=== PATIENT | male | born 1995 | race Caucasian/White ===

== ENCOUNTER 2017-01-24 11:03 | Emergency (ER) | payer BC, MEDICAID ==
[2017-01-24] MEDS ORDERED: Compazine 10 MG/2 ML IV ONE (11:36)
[2017-01-24] MEDS ORDERED: Hydromorphone 1 mg/ml Ampule IV ONE (11:38)
[2017-01-24] MEDS ORDERED: Sodium Chloride 0.9% 1000 ML 1,000 ML IV SCH (11:45)
--- NOTE | 2017-01-24 11:45 | ERPHSYRPT ---
- History of Present Illness Time Seen by Provider: 01/24/17 11:30 Source: patient Exam Limitations: clinical condition Patient Subjective Stated Complaint: pt states he began having a headache last pm while on the computer. pt states he has these headaches but not often. Triage Nursing Assessment: pt pink, warm, dry. pt ambulated into ER without difficulty. pupils perrl. Physician History: PATIENT COMPLAINS OF GENERALIZED HEADACHE SINCE LAST NIGHT CONSTANT, PAIN SCALE 8/10 ASSOCIATED WITH PHOTOPHOBIA, DENIES NASAL CONGESTION, FACIAL PRESSURE, BLURRED VISION, FEVER OR NECK STIFFNESS. Timing/Duration: yesterday Quality: throbbing Head Pain Location: global Severity of Pain-Max: moderate Severity of Pain-Current: moderate Recent Head Trauma: occasional headaches Modifying Factors: Improves With: exposure to light Associated Symptoms: sensitive to light Previous symptoms: no prior history Allergies/Adverse Reactions: No Known Drug Allergies Allergy (Verified 01/24/17 11:16) Hx Tetanus, Diphtheria Vaccination/Date Given: Yes (up to date) Hx Influenza Vaccination/Date Given: No Hx Pneumococcal Vaccination/Date Given: No Immunizations Up to Date: Yes - Review of Systems Constitutional: No Fever, No Chills Eyes: No Symptoms Ears, Nose, & Throat: No Symptoms Respiratory: No Symptoms, No Cough, No Dyspnea Cardiac: No Symptoms, No Chest Pain, No Edema, No Syncope Abdominal/Gastrointestinal: No Symptoms, No Abdominal Pain, No Nausea, No Vomiting, No Diarrhea Genitourinary Symptoms: No Symptoms, No Dysuria Musculoskeletal: No Symptoms, No Back Pain, No Neck Pain Skin: No Symptoms, No Rash Neurological: Headache, No Dizziness, No Focal Weakness, No Sensory Changes Psychological: No Symptoms Endocrine: No Symptoms All Other Systems: Reviewed and Negative - Past Medical History Pertinent Past Medical History: Yes ENT History: Other Respiratory History: Asthma Other Medical History: tubes in ears - Past Surgical History Past Surgical History: Yes Other Surgical History: tubes in ears - Social History Smoking Status: Never smoker Exposure to second hand smoke: No Drug Use: none Patient Lives Alone: No - Nursing Vital Signs Nursing Vital Signs: Initial Vital Signs Temperature 99.9 F Temperature Source Oral Pulse Rate 98 Respiratory Rate 18 Blood Pressure [] 125/69 Pain Intensity 0 - Physical Exam General Appearance: no apparent distress Eye Exam: PERRL/EOMI, other (NO PERCUSSION TENDERNESS OVER SINUSES) Ears, Nose, Throat Exam: normal ENT inspection, moist mucous membranes Neck Exam: normal inspection, supple, full range of motion, other (NO POST CERVICAL SPINAL TENDERNESS), No meningismus Respiratory Exam: normal breath sounds, lungs clear Cardiovascular Exam: regular rate/rhythm, normal heart sounds Gastrointestinal/Abdominal Exam: soft, normal bowel sounds, No tenderness, No distention Back Exam: normal inspection, normal range of motion Mental Status Exam: alert, oriented x 3, 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 Exam: normal speech, PERRL, No facial droop Coordination/Gait Exam: normal cerebellar function Motor/Sensory Exam: no motor deficit, no sensory deficit Skin Exam: normal color, warm, dry, No rash SpO2: 97 Oxygen Delivery: Room Air - CT Exams Head CT Interpretation: Discussed w/radiologist (NORMAL CT HEAD ) Ordered Tests: Active Orders 24 hr Category Date Time Status HEAD WITHOUT CONTRAST [CT] Stat Exams 01/24/17 13:14 Completed BMP Stat Lab 01/24/17 12:00 Completed CBC W DIFF Stat Lab 01/24/17 12:00 Completed Medication Summary Generic Name Dose Route Start Last Admin Trade Name Freq PRN Reason Stop Dose Admin Sodium Chloride 1,000 mls @ 200 mls/hr 01/24/17 11:45 01/24/17 12:06 Sodium Chloride 0.9% 1000 Ml IV 02/23/17 11:44 200 mls/hr .Q5H STEFANIE Administration Discontinued Medications Generic Name Dose Route Start Last Admin Trade Name Freq PRN Reason Stop Dose Admin Fentanyl Citrate 100 mcg 01/24/17 14:12 01/24/17 14:16 Sublimaze 100 Mcg/2 Ml IV 01/24/17 14:13 100 mcg STAT ONE Administration Fentanyl Citrate Confirm 01/24/17 14:14 Sublimaze 100 Mcg/2 Ml Administered 01/24/17 14:15 Dose 100 mcg .ROUTE .STK-MED ONE Hydromorphone HCl 1 mg 01/24/17 11:38 01/24/17 12:05 Hydromorphone 1 Mg/Ml Ampule IV 01/24/17 11:39 1 mg STAT ONE Administration Hydromorphone HCl Confirm 01/24/17 12:02 Hydromorphone 1 Mg/Ml Ampule Administered 01/24/17 12:03 Dose 1 mg .ROUTE .STK-MED ONE Ketorolac Tromethamine 30 mg 01/24/17 13:47 01/24/17 13:53 Toradol 30 Mg Injection IV 01/24/17 13:48 30 mg STAT ONE Administration Ketorolac Tromethamine Confirm 01/24/17 13:50 Toradol 30 Mg Injection Administered 01/24/17 13:51 Dose 30 mg .ROUTE .STK-MED ONE Ondansetron HCl 4 mg 01/24/17 13:29 01/24/17 13:46 Zofran 4 Mg/2 Ml Vial IV 01/24/17 13:30 4 mg STAT ONE Administration Ondansetron HCl Confirm 01/24/17 13:34 Zofran 4 Mg/2 Ml Vial Administered 01/24/17 13:35 Dose 4 mg .ROUTE .STK-MED ONE Prochlorperazine Edisylate 10 mg 01/24/17 11:36 01/24/17 12:05 Compazine 10 Mg/2 Ml IV 01/24/17 11:37 10 mg STAT ONE Administration Prochlorperazine Edisylate Confirm 01/24/17 12:02 Compazine 10 Mg/2 Ml Administered 01/24/17 12:03 Dose 10 mg .ROUTE .STK-MED ONE Lab/Rad Data: Laboratory Result Diagrams 01/24/17 12:00 01/24/17 12:00 Laboratory Results 01/24/17 01/24/17 Range/Units 12:00 12:00 WBC 6.8 (4.0-10.5) K/mm3 RBC 4.63 (4.1-5.6) M/mm3 Hgb 14.3 (12.5-18.0) gm/dl Hct 42.6 (42-50) % MCV 92.0 (78-100) fl MCH 30.9 (26-32) pg MCHC 33.6 (32-36) g/dl RDW 13.3 (11.5-14.0) % Plt Count 304 (150-450) K/mm3 MPV 9.5 (6-9.5) fl Gran % 73.4 H (36.0-66.0) % Lymphocytes % 16.7 L (24.0-44.0) % Monocytes % 9.0 (0.0-12.0) % Eosinophils % 0.6 (0.00-5.0) % Basophils % 0.3 (0.0-0.4) % Basophils # 0.02 (0-0.4) Sodium 139 (136-145) mEq/L Potassium 3.9 (3.5-5.1) mEq/L Chloride 104 (98-107) mEq/L Carbon Dioxide 29.1 (21-32) mEq/L Anion Gap 9.3 (5-15) MEQ/L BUN 11 (9-20) mg/dL Creatinine 1.13 (0.55-1.30) mg/dl Estimated GFR > 60 ML/MIN Glucose 107 (70-110) MG/DL Calcium 9.2 (8.5-10.1) mg/dL - Progress Progress Note: 01/24/17 11:44 PATIENT ADMINISTERED IV NORMAL SALINE 200ML/HR, COMPAZINE 10MG, DILAUDID 1MG IV , ZOFRAN 4MG, TORADOD 30MG IV 01/24/17 13:46 Counseled pt/family regarding: diagnosis, need for follow-up, rad results - Departure Time of Disposition: 14:40 Departure Disposition: Home Clinical Impression: ACUTE CEPHALGIA Condition: Stable Critical Care Time: No Referrals: TAY BATRES [Primary Care Provider] - Instructions: Headache Additional Instructions: FOLLOWUP WITH YOUR FAMILY PHYSICIAN FOR EVALUATION. FIORICET WITH CODEINE EVERY 4-6 HOURS NEEDED FOR PAIN. ZOFRAN 4MG EVERY 4 HOURS FOR NAUSEA. Prescriptions: Butalbit/Acetamin/Caff/Codeine [Fioricet-Cod [id number] Cap] 1 each PO Q4HPRN PRN #12 capsule PRN Reason: Pain Ondansetron [Zofran Odt] 4 mg PO Q4H PRN PRN #6 tab.rapdis PRN Reason: Nausea
[2017-01-24] MEDS ORDERED: Compazine 10 MG/2 ML ONE (12:02)
[2017-01-24] MEDS ORDERED: Hydromorphone 1 mg/ml Ampule ONE (12:02)
[2017-01-24] MEDS ORDERED: Sodium Chloride 0.9% 1000 ML 1,000 ML ONE (12:03)
[2017-01-24 12:22] LABS: BASOPHIL % 0.3 % (0.0-0.4); Eosinophil % 0.6 % (0.00-5.0); Granulocytes % 73.4 % (36.0-66.0); Lymphocytes % 16.7 % (24.0-44.0); Mean Corpuscular Hemoglobin 30.9 pg (26-32); Mean Platelet Volume 9.5 fl (6-9.5); Platelet Count 304 K/mm3 (150-450); Red Blood Count 4.63 M/mm3 (4.1-5.6); Red Cell Distribution Width 13.3 % (11.5-14.0); White Blood Count 6.8 K/mm3 (4.0-10.5)
[2017-01-24 12:35] LABS: ANION GAP 9.3 MEQ/L (5-15); BLOOD UREA NITROGEN 11 mg/dL (9-20); CHLORIDE 104 mEq/L (98-107); Carbon Dioxide 29.1 mEq/L (21-32); Glucose 107 MG/DL (70-110); Potassium 3.9 mEq/L (3.5-5.1); SODIUM 139 mEq/L (136-145)
[2017-01-24] MEDS ORDERED: Zofran 4 MG/2 ML VIAL IV ONE (13:29)
[2017-01-24] MEDS ORDERED: Zofran 4 MG/2 ML VIAL ONE (13:34)
--- NOTE | 2017-01-24 13:44 | XRAY ---
Indication: Right headache. Multiple contiguous axial images obtained through the head without contrast. Comparison: None Normal appearing brain parenchyma, ventricles, and bony calvarium. Visualized paranasal sinuses and mastoid air cells are clear. Impression: Normal CT head without contrast exam. CT DI 69.38
[2017-01-24] MEDS ORDERED: TORAdol 30 mg Injection IV ONE (13:47)
[2017-01-24] MEDS ORDERED: TORAdol 30 mg Injection ONE (13:50)
[2017-01-24 14:09] VITALS: O2SAT 97
[2017-01-24] MEDS ORDERED: SUBLIMAZE 100 MCG/2 ML IV ONE (14:12)
[2017-01-24] MEDS ORDERED: SUBLIMAZE 100 MCG/2 ML ONE (14:14)
[2017-01-24 14:48] VITALS: BP 125/69; PULSE 98
== END 2017-01-24 14:46 | disposition home or self-care (01) ==
LOC: ED 11:03
DX: R51 Headache (principal)
CPT/HCPCS: 36415; 70450; 80048; 85025; 96360; 96361; 96374; 96375; 99284; J1170; J1885; J2405; J3010

== ENCOUNTER 2017-07-08 17:31 | Emergency (ER) | payer BC ==
[2017-07-08] MEDS ORDERED: BABY ASPIRIN 81 MG CHEW PO ONE (17:51)
--- NOTE | 2017-07-08 17:57 | ERPHSYRPT ---
<HARDIKBRANDON CHATTERJEELEY - Last Filed: 07/08/17 19:05> - History of Present Illness Time Seen by Provider: 07/08/17 17:51 Historian: patient Exam Limitations: no limitations Patient Subjective Stated Complaint: sharp chest pain since 1500 today. 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 also having occasional pain to right chest. is working several 12 hour night shifts in a row and has been very tired. Triage Nursing Assessment: ambulated to room per self. skin w/d, color normal, resp easy. denies any other symptoms at this time. no edema noted, breath and heart sounds good. Physician History: 21-year-old white male with history of asthma arrives with complaint of pain in his anterior chest both left and right sharp worse with turning his head to the left symptoms since 3:00 states the pain comes and goes. Patient has no nausea no vomiting no shortness of breath no diaphoresis. Past medical history includes asthma. Past surgical history includes myringotomy tubes. Social history occasional alcohol. Timing/Duration: today (3 PM) Activities at Onset: rest Quality: sharpness Location: other (bilateral upper chest left worse than right) Chest Pain Radiation: arm (right arm) Severity of Pain-Max: moderate Severity of Pain-Current: mild Modifying Factors: Improves With: other (turning head to the left makes pain worse) Associated Symptoms: No nausea, No vomiting, No palpitations, No heartburn, No abdominal pain, No shortness of breath, No cough, No hurts to breathe, No diaphoresis, No chills, No fever, No fatigue, No weakness, No swelling/lump in chest, No syncope, No rash, No headache, No dizziness, No edema, No back pain Prior Chest Pain/Cardiac Workup: no prior chest pain Aspirin Treatment Today: 81 mg x 4, provided by ED Allergies/Adverse Reactions: No Known Drug Allergies Allergy (Verified 07/08/17 17:32) Hx Tetanus, Diphtheria Vaccination/Date Given: Yes (up to date) Hx Influenza Vaccination/Date Given: No Hx Pneumococcal Vaccination/Date Given: No - Review of Systems Constitutional: No Fever, No Chills Eyes: No Symptoms Ears, Nose, & Throat: No Symptoms Respiratory: No Cough, No Dyspnea Cardiac: Chest Pain, No Edema, No Syncope Abdominal/Gastrointestinal: No Abdominal Pain, No Nausea, No Vomiting, No Diarrhea Genitourinary Symptoms: No Dysuria Musculoskeletal: No Back Pain, No Neck Pain Skin: No Rash Neurological: No Dizziness, No Focal Weakness, No Sensory Changes Psychological: No Symptoms Endocrine: No Symptoms All Other Systems: Reviewed and Negative - Past Medical History Pertinent Past Medical History: Yes ENT History: Other Respiratory History: Asthma Other Medical History: tubes in ears - Past Surgical History Past Surgical History: Yes Other Surgical History: tubes in ears - Social History Smoking Status: Never smoker Exposure to second hand smoke: No Drug Use: none Patient Lives Alone: No - Nursing Vital Signs Nursing Vital Signs: Initial Vital Signs Temperature 97.8 F 07/08/17 17:33 Pulse Rate 90 07/08/17 17:33 Respiratory Rate 18 07/08/17 17:33 Blood Pressure 130/84 07/08/17 17:33 O2 Sat by Pulse Oximetry 97 07/08/17 17:33 Pain Scale Pain Intensity 3 - Physical Exam General Appearance: mild distress, obese, other (well-developed obese white male in no acute distress) Eye Exam: PERRL/EOMI, eyes nml inspection Ears, Nose, Throat Exam: normal ENT inspection, moist mucous membranes Neck Exam: normal inspection, non-tender, supple, full range of motion Respiratory Exam: normal breath sounds, lungs clear, No respiratory distress Cardiovascular Exam: regular rate/rhythm, normal heart sounds Gastrointestinal/Abdomen Exam: soft, No tenderness, No mass Back Exam: normal inspection, No CVA tenderness, No vertebral tenderness Extremity Exam: normal inspection, normal range of motion Neurologic Exam: alert, oriented x 3, cooperative, normal mood/affect, sensation nml, No motor deficits Skin Exam: normal color, warm, dry SpO2 Interpretation: normal (97%) SpO2: 97 Oxygen Delivery: Room Air - Course Nursing assessment & vital signs reviewed: Yes EKG Interpreted by Me: RATE (86 bpm), Sinus Rhythm, Other (EKG, normal sinus rhythm 86 bpm axisSI/QIII pattern, no acute ST or T wave changes noted, essentially normal EKG) Ordered Tests: Active Orders 24 hr Category Date Time Status Disease Education Specialist STAT Care 07/08/17 17:52 Active EKG-ER Only STAT Care 07/08/17 17:51 Active IV Insertion STAT Care 07/08/17 17:51 Active Pulse Oximetry (ED) STAT Care 07/08/17 17:51 Active CHEST WITH CONTRAST [CT] Stat Exams 07/08/17 18:34 Taken CBC W DIFF Stat Lab 07/08/17 17:45 Completed CMP Stat Lab 07/08/17 17:45 Completed D-DIMER QUANTITATION Stat Lab 07/08/17 17:45 Completed TROPONIN Q3H Lab 07/08/17 17:45 Completed TROPONIN Q3H Lab 07/08/17 21:00 Ordered TROPONIN Q3H Lab 07/09/17 00:00 Ordered TROPONIN Q3H Lab 07/09/17 03:00 Ordered TROPONIN Q3H Lab 07/09/17 06:00 Ordered Medication Summary Discontinued Medications Generic Name Dose Route Start Last Admin Trade Name Freq PRN Reason Stop Dose Admin Aspirin 324 mg 07/08/17 17:51 07/08/17 18:26 Baby Aspirin 81 Mg Chew PO 07/08/17 17:52 324 mg STAT ONE Administration Aspirin Confirm 07/08/17 18:14 Baby Aspirin 81 Mg Chew Administered 07/08/17 18:15 Dose 324 mg .ROUTE .STK-MED ONE Hydroxyzine HCl 50 mg 07/08/17 19:47 07/08/17 19:50 Atarax 25 Mg PO 07/08/17 19:48 50 mg STAT ONE Administration Hydroxyzine HCl Confirm 07/08/17 19:50 Atarax 25 Mg Administered 07/08/17 19:51 Dose 50 mg .ROUTE .STK-MED ONE Ibuprofen 600 mg 07/08/17 19:47 07/08/17 19:50 Motrin 600 Mg PO 07/08/17 19:48 600 mg STAT ONE Administration Ibuprofen Confirm 07/08/17 19:49 Motrin 600 Mg Administered 07/08/17 19:50 Dose 600 mg .ROUTE .STK-MED ONE Lab/Rad Data: Laboratory Result Diagrams 07/08/17 17:45 07/08/17 17:45 Laboratory Results 07/08/17 07/08/17 07/08/17 Range/Units 17:45 17:45 17:45 WBC (4.0-10.5) K/mm3 RBC (4.1-5.6) M/mm3 Hgb (12.5-18.0) gm/dl Hct (42-50) % MCV (78-100) fl MCH (26-32) pg MCHC (32-36) g/dl RDW (11.5-14.0) % Plt Count (150-450) K/mm3 MPV (6-9.5) fl Gran % (36.0-66.0) % Lymphocytes % (24.0-44.0) % Monocytes % (0.0-12.0) % Eosinophils % (0.00-5.0) % Basophils % (0.0-0.4) % Basophils # (0-0.4) D-Dimer 507.67 H* (0-500) ng/mL Sodium 142 (136-145) mEq/L Potassium 4.0 (3.5-5.1) mEq/L Chloride 107 (98-107) mEq/L Carbon Dioxide 28.5 (21-32) mEq/L Anion Gap 10.1 (5-15) MEQ/L BUN 16 (9-20) mg/dL Creatinine 1.09 (0.55-1.30) mg/dl Estimated GFR > 60 ML/MIN Glucose 103 (70-110) MG/DL Calcium 9.0 (8.5-10.1) mg/dL Total Bilirubin 0.80 (0.2-1.0) mg/dL AST 25 (15-37) U/L ALT 47 (12-78) U/L Alkaline Phosphatase 89 (46-116) U/L Troponin I < 0.017 (0.000-0.056) ng/ml Serum Total Protein 7.7 (6.4-8.2) gm/dL Albumin 3.7 (3.4-5.0) g/dL 07/08/17 Range/Units 17:45 WBC 7.4 (4.0-10.5) K/mm3 RBC 4.46 (4.1-5.6) M/mm3 Hgb 13.5 (12.5-18.0) gm/dl Hct 41.2 L (42-50) % MCV 92.4 (78-100) fl MCH 30.3 (26-32) pg MCHC 32.8 (32-36) g/dl RDW 12.5 (11.5-14.0) % Plt Count 349 (150-450) K/mm3 MPV 9.5 (6-9.5) fl Gran % 55.3 (36.0-66.0) % Lymphocytes % 32.1 (24.0-44.0) % Monocytes % 7.9 (0.0-12.0) % Eosinophils % 4.3 (0.00-5.0) % Basophils % 0.4 (0.0-0.4) % Basophils # 0.03 (0-0.4) D-Dimer (0-500) ng/mL Sodium (136-145) mEq/L Potassium (3.5-5.1) mEq/L Chloride (98-107) mEq/L Carbon Dioxide (21-32) mEq/L Anion Gap (5-15) MEQ/L BUN (9-20) mg/dL Creatinine (0.55-1.30) mg/dl Estimated GFR ML/MIN Glucose (70-110) MG/DL Calcium (8.5-10.1) mg/dL Total Bilirubin (0.2-1.0) mg/dL AST (15-37) U/L ALT (12-78) U/L Alkaline Phosphatase (46-116) U/L Troponin I (0.000-0.056) ng/ml Serum Total Protein (6.4-8.2) gm/dL Albumin (3.4-5.0) g/dL - Progress Progress: improved Air Movement: fair Progress Note: 07/08/17 18:32 Patient is a 21-year-old white male arrives with complaint of pain in his anterior chest since this afternoon sharp bilateral worse with movement worse with leaning forward and turning his head to the side. EKG is normal troponin within normal limits unfortunately however d-dimer is elevated at 507. Will go ahead and order a CTA chest to rule out PE 07/08/17 19:03 Case has been discussed with Dr. Vinay Mclean will assume care of this patient secondary to shift change. - Departure Clinical Impression: Chest pain Condition: Fair Referrals: TAY BATRES [Primary Care Provider] - Instructions: Chest Pain Additional Instructions: Rest tonite, no driving or operating machinery. Off work tonite. Take ibuprofen. Try warm compresses and cold packs. Return for problems or concerns. Follow up with Dr Batres next week. Prescriptions: Ibuprofen 600 mg PO Q6H PRN PRN #20 tablet PRN Reason: Pain <CHIOMA MCLEAN - Last Filed: 07/08/17 20:31> - CT Exams chest CTA CT Interpretation: Tele-radiologist Report (no central PE, suboptimal bolus, no pneumonia, no TAD) - Progress Progress Note: 07/08/17 20:27 Pt was initially seen per Dr Escamilla. He has fatigue, working a lot, chest pain. EKG nonspecific. No fam hx of early CAD, no drug use, no hx of thromboembolic events. He is overweight. 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 No cough or short of breath. PE: Chest clear. Cor reg without murmur or rub. Abd soft. Legs without edema. Labs and CTA reassuring. Pain worse with moving arms and chest. Will take off work tonite, rest, motrin, follow up Dr Batres. Will release with instr. Counseled pt/family regarding: lab results, diagnosis, need for follow-up, rad results - Departure Time of Disposition: 20:30 Departure Disposition: Home Critical Care Time: No
[2017-07-08 17:59] LABS: BASOPHIL % 0.4 % (0.0-0.4); Eosinophil % 4.3 % (0.00-5.0); Granulocytes % 55.3 % (36.0-66.0); Lymphocytes % 32.1 % (24.0-44.0); Mean Cell Volume 92.4 fl (78-100); Mean Corpuscular Hemoglobin 30.3 pg (26-32); Mean Platelet Volume 9.5 fl (6-9.5); Monocytes % 7.9 % (0.0-12.0); Platelet Count 349 K/mm3 (150-450); Red Blood Count 4.46 M/mm3 (4.1-5.6); Red Cell Distribution Width 12.5 % (11.5-14.0); White Blood Count 7.4 K/mm3 (4.0-10.5)
[2017-07-08] MEDS ORDERED: BABY ASPIRIN 81 MG CHEW ONE (18:14)
[2017-07-08 18:15] LABS: ALBUMIN 3.7 g/dL (3.4-5.0); ALKALINE PHOSPHATASE 89 U/L (46-116); ANION GAP 10.1 MEQ/L (5-15); BLOOD UREA NITROGEN 16 mg/dL (9-20); CHLORIDE 107 mEq/L (98-107); Carbon Dioxide 28.5 mEq/L (21-32); Glucose 103 MG/DL (70-110); SGOT/AST 25 U/L (15-37); SGPT/ALT 47 U/L (12-78); SODIUM 142 mEq/L (136-145); Total Protein 7.7 gm/dL (6.4-8.2)
[2017-07-08] MEDS ORDERED: ATARAX 25 MG PO ONE (19:47)
[2017-07-08] MEDS ORDERED: MOTRIN 600 MG PO ONE (19:47)
[2017-07-08] MEDS ORDERED: MOTRIN 600 MG ONE (19:49)
[2017-07-08] MEDS ORDERED: ATARAX 25 MG ONE (19:50)
[2017-07-08 21:45] VITALS: BP 110/61; PULSE 88; O2SAT 97
--- NOTE | 2017-07-08 23:04 | XRAY ---
Indication: Chest pain radiating down right arm. Elevated d-dimer. History of asthma. Multiple contiguous axial images obtained through the chest using 80 cc Isovue 370 contrast and PE protocol. Comparison: None There is poor opacification of the pulmonary arteries markedly limiting evaluation for pulmonary embolus. No large central pulmonary embolus. Heart is not enlarged. Aorta is normal in course and caliber. Hiatal hilar and tiny mediastinal calcified nodes. No pathologic mediastinal/hilar lymphadenopathy. Examination of the lung parenchyma demonstrates minimal bilateral dependent atelectasis and scattered calcified granulomas. No suspicious pulmonary mass, infiltrate, or effusion. Bony thorax intact. Limited upper abdomen demonstrates fatty liver and 14.6 cm splenomegaly. Impression: 1. CT PE study limited due to suboptimal contrast opacification. No large central PE. 2. No acute cardiopulmonary abnormalities. 3. Evidence for old granulomatous disease. 4. Incidental fatty liver and splenomegaly. Comment: Preliminary interpretation was made by [facility]. No critical discrepancy. CTDI 28.14
== END 2017-07-08 21:29 | disposition home or self-care (01) ==
LOC: ED 17:31
DX: R07.9 Chest pain, unspecified (principal); J45.909 Unspecified asthma, uncomplicated
CPT/HCPCS: 36000; 36415; 71260; 80053; 84484; 85025; 85379; 93005; 93041; 99284; A9270-GY

== ENCOUNTER 2021-01-24 09:44 | Emergency (ER) | payer SELFPAY ==
[2021-01-24 09:55] VITALS: BP 153/91; PULSE 84; O2SAT 98
--- NOTE | 2021-01-24 10:02 | ERPHSYRPT ---
- History of Present Illness Time Seen by Provider: 01/24/21 09:53 Source: patient Exam Limitations: no limitations Patient Subjective Stated Complaint: Pt states that he has had a headache off and on since Tuesday, light sensitivity, pt has had diarrhea too Triage Nursing Assessment: Pt brought to the ER by his mother, hypertensive, rates head pain as 4/10, last vomited , skin n/w/d, talkative, doesn't appear to be in any distress Physician History: 25 years old male with history of migraines poorly controlled, irritable bowel syndrome presented in the ER with 6 days history of gastroenteritis symptoms and off-and-on headache. Patient reports he has a total 2 episodes of nonprojectile, nonbilious vomiting last one was 2 days ago and has 3-4 episodes of loose stool with the last episode yesterday. He did tolerate oral very well. He has been drinking 2-3 bottles of water every time he has a vomiting or diarrhea. He does have a dull aching headache all over which was worse 2 days ago and is improved now currently rates 3-4/10 intensity at max without any focal numbness tingling or weakness. Headache is similar to previous episodes and does not think this was the worst headache of his life. Denies any visual symptoms. No difficulty speech. Did have mild light sensitivity earlier. Denies any sick contact. Patient reports he occasionally does get symptoms of gastroenteritis with IBS depending on what he eats. Mom brought him here because she thought he might need IV fluids. Timing/Duration: day(s) (6), intermittent, resolved prior to arrival, improved Severity: mild, moderate Associated Symptoms: nausea, vomiting, headaches, malaise, weakness, No abdominal pain, No cough, No chest pain, No fever Allergies/Adverse Reactions: red dye Allergy (Verified 01/24/21 09:57) Home Medications: No Reportable Medications [No Reported Medications] 01/24/21 [History] Hx Tetanus, Diphtheria Vaccination/Date Given: Yes (up to date) Hx Influenza Vaccination/Date Given: No Hx Pneumococcal Vaccination/Date Given: No Travel Risk - International Travel Have you traveled outside of the country in past 3 weeks: No - Coronavirus Screening Are you exhibiting any of the following symptoms?: No Close contact with a COVID-19 positive Pt in past 14-21 Days: No - Vaccine Status Have you recieved a Covid-19 vaccination: No - Review of Systems Respiratory: No Symptoms Cardiac: No Symptoms Abdominal/Gastrointestinal: Nausea, Vomiting, Diarrhea Genitourinary Symptoms: No Symptoms Musculoskeletal: Myalgias Skin: No Symptoms Neurological: No Symptoms Psychological: No Symptoms Endocrine: No Symptoms Hematologic/Lymphatic: No Symptoms Immunological/Allergic: No Symptoms - Past Medical History Pertinent Past Medical History: Yes ENT History: Other Respiratory History: Asthma Other Medical History: tubes in ears - Past Surgical History Past Surgical History: Yes Other Surgical History: tubes in ears - Social History Smoking Status: Never smoker Exposure to second hand smoke: No Drug Use: none Patient Lives Alone: No - Nursing Vital Signs Nursing Vital Signs: Initial Vital Signs Temperature 97.8 F 01/24/21 09:49 Pulse Rate 84 01/24/21 09:49 Blood Pressure 153/91 01/24/21 09:49 O2 Sat by Pulse Oximetry 98 01/24/21 09:49 Pain Scale Pain Intensity 4 - Physical Exam General Appearance: no apparent distress, alert Eye Exam: PERRL/EOMI, eyes nml inspection Ears, Nose, Throat Exam: normal ENT inspection, TMs normal, pharynx normal Neck Exam: normal inspection, non-tender, supple, full range of motion Respiratory Exam: normal breath sounds, lungs clear Cardiovascular Exam: regular rate/rhythm, normal heart sounds Gastrointestinal/Abdomen Exam: soft, normal bowel sounds, No tenderness, No distention Back Exam: normal inspection, normal range of motion, No CVA tenderness Extremity Exam: normal inspection, normal range of motion Neurologic Exam: alert, oriented x 3, cooperative Skin Exam: normal color SpO2 Interpretation: normal SpO2: 98 O2 Delivery: Room Air - Progress Progress: unchanged Progress Note: 01/24/21 10:00 25 years old is evaluated for gastroenteritis symptoms and a headache. His headache is minimal, offered medication but he does not want anything. Patient main concern was possible dehydration which I do not think clinically patient is dehydrated and is keeping himself well-hydrated with fluid replacements. Also he has only few episodes of vomiting and diarrhea and currently I did not appreciate any abdominal tenderness. Not tachypneic or tachycardic. Could be a viral gastroenteritis accompanied with headache are might have a migraine attack. Recommended supportive care. Do not think patient needs any work-up discharged with outpatient follow-up. Counseled pt/family regarding: diagnosis, need for follow-up - Departure Departure Disposition: Home Clinical Impression: Gastroenteritis, Viral syndrome Condition: Stable Critical Care Time: No Referrals: TAY BATRES [NON-STAFF PHY W/O PRIVILEGES] - (2 days for re evaluation) Instructions: Viral Gastroenteritis, Viral Syndrome (DC) Additional Instructions: Keep yourself well-hydrated. Take Tylenol as needed. Follow-up with primary care physician for reevaluation. Return to ER for worsening diarrhea vomiting/headache or if develop fever chills etc.
== END 2021-01-24 10:14 | disposition home or self-care (01) ==
LOC: ED 09:44
DX: K52.9 Noninfective gastroenteritis and colitis, unspecified (principal); B34.9 Viral infection, unspecified
CPT/HCPCS: 99283